=== PATIENT | male | born 1960 | race Caucasian/White ===

== ENCOUNTER → 2016-03-04 | Outpatient (REF) | payer MEDICARE, OTHER ==
[~2016-03-04] MED LIST: AMLO10TA2 PO; AMLO5TAB2 PO; AMOX875T2 PO; BACT800T5 PO; CEFAD50CA PO; CEPH500C PO; GLIP10TA6 PO; HYDR-4266 PO; LANTINJ4 SC; METO25TAB FT; METO50TA2 PO; PERC5TAB6 PO; RIFA30CA PO; SANT250O8 TOP; SULF1TAB72 PO
== END ==
LOC: M LAB REF 16:48
PROVIDERS: ATTEND Surgery
DX: L97.511 Non-pressure chronic ulcer of other part of right foot limited to breakdown of skin (principal); E09.621 Drug or chemical induced diabetes mellitus with foot ulcer; Z79.4 Long term (current) use of insulin; Z79.891 Long term (current) use of opiate analgesic; Z79.899 Other long term (current) drug therapy
CPT/HCPCS: 15275; 87070; 87077; 87186; Q4131

== ENCOUNTER → 2016-05-26 | Outpatient (REF) | payer MEDICARE, MEDICAID ==
[2016-05-26 15:58] LABS: CALCIUM LEVEL 8.5 MG/DL (8.5-10.1); CREATININE FOR GFR 2.68 MG/DL (0.70-1.30); GLOMERULAR FILTRATION RATE 26.5 (>56)
[2016-05-26 15:59] LABS: BASO # 0.1 K/mm3 (0.0-0.2); BASO % 0.7 % (0.0-1.0); EOS # 0.2 K/mm3 (0.0-0.50); EOS % 2.5 % (0.0-3.0); LARGE UNSTAINED CELL # 0.1 K/mm3 (0.0-0.4); LARGE UNSTAINED CELL % 1.1 % (0.0-4.0); LYMPH # 2.9 K/mm3 (1.5-4.5); LYMPH % 32.6 % (24.0-44.0); MEAN CORPUSCULAR HEMOGLOBIN 28.5 pg (27.0-33.0); MEAN CORPUSCULAR VOLUME 89.1 fl (80.0-96.0); MONO # 0.6 K/mm3 (0.0-0.8); MONO % 6.6 % (0.0-5.0); NEUTROPHILS # 4.8 K/mm3 (1.8-7.7); NEUTROPHILS % 56.3 % (36.0-66.0); PLATELET COUNT, AUTOMATED 358 k/mm3 (150-450); POTASSIUM SERUM 5.8 MEQ/L (3.5-5.1); RED CELL DISTRIBUTION WIDTH 13.3 % (11.5-14.5); WHITE BLOOD COUNT 8.6 K/mm3 (4.0-10.0)
[2016-05-26 20:41] LABS: ERYTHROCYTE SEDIMENTATION RATE 85 mm/hr (0-20)
== END ==
LOC: M SFHCPLAZ 12:22
PROVIDERS: ATTEND Internal Medicine Infectious Disease
DX: M86.671 Other chronic osteomyelitis, right ankle and foot (principal)